=== PATIENT | female | born 1995 | race Two or more races ===

== ENCOUNTER 2021-07-03 17:49 | Emergency (ER) | payer SELFPAY ==
[~2021-07-03] VITALS: Ht 154.9 cm; Wt 69.5 kg
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
[2021-07-03 19:13] VITALS: BP 116/63
[2021-07-03] MEDS ORDERED: HYDR-2761 PO (19:19)
[2021-07-03] MEDS ORDERED: IBUP-1007 PO (19:19)
[2021-07-03] MEDS ORDERED: HYDROcodone/APAP 5/325MG 1 TAB TABLET PO ONE (19:30)
== END 2021-07-03 20:34 | disposition home or self-care (01) ==
LOC: ER 17:49
DX: S52.302A Unspecified fracture of shaft of left radius, initial encounter for closed fracture (principal); G89.11 Acute pain due to trauma; W01.0XXA Fall on same level from slipping, tripping and stumbling without subsequent striking against object, initial encounter; Y92.89 Other specified places as the place of occurrence of the external cause; Y99.8 Other external cause status; Y93.01 Activity, walking, marching and hiking
CPT/HCPCS: 29515; 73080; 73090; 99284; A4565